=== PATIENT | female | born 1950 | race Caucasian/White ===

== ENCOUNTER 2018-06-07 06:15 | Day surgery (SDC) | payer MEDICARE, OTHER ==
[2018-06-07] MEDS ORDERED: Lactated Ringers 1,000 ML IV SCH (07:00)
[2018-06-07] MEDS ORDERED: Midazolam 1 MG/ML 2 ML SDV ONE (07:19)
[2018-06-07] MEDS ORDERED: fentaNYL 100 MCG/2 ML SDV ONE (07:19)
[2018-06-07] MEDS ORDERED: Propofol 200 MG/20 ML SDV ONE (07:19)
--- NOTE | 2018-06-07 11:14 | OR ---
DATE OF PROCEDURE: 06/07/2018 PREOPERATIVE DIAGNOSIS: History of adenomatous colon polyps. POSTOPERATIVE DIAGNOSES: 1. Unremarkable colonoscopy. 2. History of adenomatous colon polyps. PROCEDURE PERFORMED: Colonoscopy to the cecum. ANESTHESIA: IV anesthesia with monitored anesthesia care. INDICATION: This 67-year-old white female is referred for a colonoscopy because of a history of adenomatous colon polyps. She says her last colonoscopic exam was done 5 years ago. I counseled her for the procedure, including risks and alternatives, and she gave her informed consent to proceed. DESCRIPTION OF PROCEDURE: The patient was placed in the left lateral decubitus position. IV anesthesia was administered by the Anesthesia Service. Time-out was held. A rectal exam was performed, which was unremarkable. The flexible video Olympus colonoscope was introduced through her anus, up her rectum and out her colon, all the way to the cecum. Once the cecum was reached, the scope was slowly withdrawn examining the mucosa throughout. No mucosal abnormalities were noted. The scope was retroflexed in the rectum with the distal rectum appearing unremarkable. The scope was straightened and removed. She tolerated the procedure well. Samir Webster MD /[id number]
== END 2018-06-07 09:15 | disposition home or self-care (01) ==
LOC: JP.SDS 06:15
PROVIDERS: ATTEND Surgery
DX: Z12.11 Encounter for screening for malignant neoplasm of colon (principal); E21.3 Hyperparathyroidism, unspecified; K75.9 Inflammatory liver disease, unspecified; Z86.010 Personal history of colon polyps; Z88.1 Allergy status to other antibiotic agents
CPT/HCPCS: 45378; J2250; J2704; J3010; J7120

== ENCOUNTER 2019-09-20 19:18 | Inpatient (IN) | payer OTHER, MEDICARE ==
[2019-09-20] MEDS ORDERED: Sodium Chloride 0.9% 1,000 ML IV ONE (20:07)
--- NOTE | 2019-09-20 20:09 | EDM.PDOC ---
ED HPI GENERAL MEDICAL PROBLEM - General Chief Complaint: General Stated Complaint: BODY ACHES Time Seen by Provider: 09/20/19 19:50 Source of Information: Reports: Patient History Limitations: Reports: No Limitations - History of Present Illness INITIAL COMMENTS - FREE TEXT/NARRATIVE: 68-year-old female with a history of lupus, presents with 3 days of generalized myalgias, fever, headache, and decreased appetite. She has no respiratory symptoms or cold symptoms. She has also developed a rash on her chest for the last 3 days. She had a teleconference with her [employer] fscm developer today who did not feel it was a lupus flare but he did call her primary provider to ask her to draw some labs including a COVID test and testing for a lupus flare. She had an appointment tomorrow to get this done but tonight she was so weak, had so much generalized pain, that she called the ambulance and came in. Her temperature on arrival was 101.9 but the rest of her vitals were normal, she was not tachycardic or hypotensive. Her muscle pain and fatigue are generalized , she has no isolated joint swelling, redness or pain. Diffuse abdominal discomfort, no focal pain. Denies nausea vomiting or diarrhea. Onset: Gradual (Symptoms have developed over the last 3 days) Location: Reports: Generalized Quality: Reports: Ache Associated Symptoms: Reports: Fever/Chills, Headaches, Loss of Appetite, Malaise , Weakness, Other (Fine papular rash on her chest). Denies: Chest Pain, Cough, Diaphoresis, Nausea/Vomiting muscle pain Pain Score (Numeric/FACES): 8 - Related Data Allergies Allergy/AdvReac Type Severity Reaction Status Date / Time tobramycin Allergy Swelling Verified 09/20/19 19:23 Home Meds: Home Meds Hydroxychloroquine Sulfate [Plaquenil] 300 mg PO DAILY 06/03/18 [History] Levothyroxine 137 mcg PO DAILY 06/03/18 [History] Citalopram [Citalopram HBr] 20 mg PO ASDIRECTED PRN 09/20/19 [History] hydrOXYzine pamoate [Hydroxyzine Pamoate] 25 mg PO ASDIRECTED PRN 09/20/19 [ History] hydroCHLOROthiazide [Hydrochlorothiazide] 12.5 mg PO DAILY 09/20/19 [History] traZODone HCl [Trazodone HCl] 50 mg PO BEDTIME PRN 09/20/19 [History] Past Medical History HEENT History: Reports: Impaired Vision Cardiovascular History: Reports: Hypertension Gastrointestinal History: Reports: Colon Polyp Genitourinary History: Reports: Renal Calculus 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: Reports: Fibroids Psychiatric History: Reports: Anxiety, Depression Endocrine/Metabolic History: Reports: Hyperparathyroidism, Hyperthyroidism Immunologic History: Reports: Other (See Below) Other Immunologic History: autoimmune hepatitis type II; lupus - Infectious Disease History Infectious Disease History: Reports: Chicken Pox, Helicobacter Pylori, Measles, Mumps, Shingles - Past Surgical History HEENT Surgical History: Reports: Tonsillectomy, Other (See Below) Other HEENT Surgeries/Procedures: eyelid surgery GI Surgical History: Reports: Appendectomy, Cholecystectomy, Colonoscopy, EGD Female Surgical History: Reports: Hysterectomy, Salpingo-Oophorectomy Endocrine Surgical History: Reports: Parathyroidectomy Social & Family History - Family History Family Medical History: Noncontributory - Tobacco Use Smoking Status *Q: Never Smoker - Caffeine Use Caffeine Use: Reports: Coffee - Recreational Drug Use Recreational Drug Use: No ED ROS GENERAL - Review of Systems Review Of Systems: See Below Constitutional: Reports: Fever, Chills, Malaise, Decreased Appetite HEENT: Denies: Vision Change Respiratory: Denies: Shortness of Breath, Cough Cardiovascular: Denies: Chest Pain GI/Abdominal: Reports: Abdominal Pain, Decreased Appetite, Nausea. Denies: Constipation, Diarrhea, Vomiting Musculoskeletal: Reports: Muscle Pain Skin: Reports: Rash Neurological: Reports: Headache. Denies: Confusion, Syncope Psychiatric: Reports: Anxiety ED EXAM, GENERAL - Physical Exam Exam: See Below Exam Limited By: No Limitations General Appearance: Alert, No Apparent Distress (Patient looks uncomfortable generally, but in no distress) Eye Exam: Bilateral Eye: Normal Inspection (Good hydration, no jaundice) Head: Atraumatic Respiratory/Chest: No Respiratory Distress, Lungs Clear Cardiovascular: Regular Rate, Rhythm. No: Tachycardia GI/Abdominal: Normal Bowel Sounds, Soft, Tender (She does react with tenderness to palpation of the abdomen diffusely, no significant guarding) Extremities: Other (Generally any palpation to the muscles on the back, extremities or abdomen are sore). No: No Pedal Edema Neurological: Alert, Oriented, No Motor/Sensory Deficits Psychiatric: Anxious, Tearful Skin Exam: Rash (There is a papular erythematous rash on the anterior chest but nowhere else) Course - Vital Signs Last Recorded V/S: Last Vital Signs Temp 99.8 F 09/20/19 22:46 Pulse 59 L 09/20/19 22:46 Resp 18 09/20/19 22:46 BP 91/41 L 09/20/19 22:46 Pulse Ox 96 09/20/19 22:46 - Orders/Labs/Meds Orders: Active Orders 24 hr Category Date Time Status BABESIA MICROTI ANTIBODY PANEL Urgent Lab 09/20/19 20:24 Received [id number] SARS-COV-2 RNA Stat Lab 09/20/19 20:05 Ordered CULTURE BLOOD [BC] Urgent Lab 09/20/19 20:24 Received CULTURE BLOOD [BC] Urgent Lab 09/20/19 20:35 Received HUMAN GRANULOCYTIC TUSHAR-HGE Urgent Lab 09/20/19 20:24 Received LYME, TOTAL AB TEST/REFLEX Urgent Lab 09/20/19 20:24 Received Blood Culture x2 Reflex Set [OM.PC] Urgent Oth 09/20/19 20:03 Ordered Isolation [COMM] Routine Oth 09/20/19 20:08 Ordered Medication Orders Acetaminophen (Tylenol) 650 mg PO Q4H PRN PRN Reason: Pain (Mild 1-3)/fever Citalopram Hydrobromide (Celexa) 20 mg PO ASDIRECTED PRN PRN Reason: depression Docusate Sodium (Colace) 100 mg PO BID PRN PRN Reason: Constipation Hydrochlorothiazide (Hydrochlorothiazide) 12.5 mg PO DAILY [facility] Hydroxychloroquine Sulfate (Plaquenil) 300 mg PO DAILY [facility] Doxycycline Hyclate 100 mg/ (Sodium Chloride) 100 mls @ 100 mls/hr IV Q12H [facility] Sodium Chloride (Normal Saline) 1,000 mls @ 125 mls/hr IV ASDIRECTED [facility] Levothyroxine Sodium (Levothyroxine) 112 mcg PO ACBREAKFAST [facility] Levothyroxine Sodium (Levothyroxine) 25 mcg PO ACBREAKFAST [facility] Lorazepam (Ativan) 1 mg IV Q6H PRN PRN Reason: Nausea/Vomiting Morphine Sulfate (Morphine) 2 mg IVPUSH Q2H PRN PRN Reason: Pain (severe 7-10) Non-Formulary Medication (Hydroxyzine Pamoate [Hydroxyzine Pamoate]) 25 mg PO ASDIRECTED PRN PRN Reason: Anxiety Ondansetron HCl (Zofran Odt) 4 mg PO Q6H PRN PRN Reason: Nausea able to take PO Oxycodone HCl (Oxycodone) 5 mg PO Q4H PRN PRN Reason: Pain (moderate 4-6) Pantoprazole Sodium (Protonix Iv) 40 mg IV DAILY [facility] Trazodone HCl (Trazodone) 50 mg PO BEDTIME PRN PRN Reason: Insomnia Labs: Laboratory Tests 09/20/19 09/20/19 09/20/19 Range/Units 20:04 20:24 20:24 WBC 5.0 (4.5-11.0) K/uL RBC 4.92 (3.30-5.50) M/uL Hgb 14.4 (12.0-15.0) g/dL Hct 42.6 (36.0-48.0) % MCV 87 (80-98) fL MCH 29 (27-31) pg MCHC 34 (32-36) % Plt Count 122 L (150-400) K/uL Neut % (Auto) 62 (36-66) % Lymph % (Auto) 26 (24-44) % Collin % (Auto) 10 H (2-6) % Eos % (Auto) 0 L (2-4) % Baso % (Auto) 2 H (0-1) % Sodium 137 L (140-148) mmol/L Potassium 2.9 L* (3.6-5.2) mmol/L Chloride 101 (100-108) mmol/L Carbon Dioxide 25 (21-32) mmol/L Anion Gap 13.9 (5.0-14.0) mmol/L BUN 17 (7-18) mg/dL Creatinine 1.3 H (0.6-1.0) mg/dL Est Cr Clr Drug Dosing 31.85 mL/min Estimated GFR (MDRD) 40 L (>60) Glucose 155 H (74-106) mg/dL Lactic Acid 1.0 (0.4-2.0) mmol/L Calcium 8.0 L (8.5-10.1) mg/dL Total Bilirubin 0.7 (0.2-1.0) mg/dL AST 36 (15-37) U/L ALT 37 (12-78) U/L Alkaline Phosphatase 84 (46-116) U/L Creatine Kinase (26-192) U/L C-Reactive Protein (0.0-0.3) mg/dL Total Protein 7.0 (6.4-8.2) g/dL Albumin 3.6 (3.4-5.0) g/dL Globulin 3.4 (2.3-3.5) g/dL Albumin/Globulin Ratio 1.1 L (1.2-2.2) 09/20/19 Range/Units 20:24 WBC (4.5-11.0) K/uL RBC (3.30-5.50) M/uL Hgb (12.0-15.0) g/dL Hct (36.0-48.0) % MCV (80-98) fL MCH (27-31) pg MCHC (32-36) % Plt Count (150-400) K/uL Neut % (Auto) (36-66) % Lymph % (Auto) (24-44) % Collin % (Auto) (2-6) % Eos % (Auto) (2-4) % Baso % (Auto) (0-1) % Sodium (140-148) mmol/L Potassium (3.6-5.2) mmol/L Chloride (100-108) mmol/L Carbon Dioxide (21-32) mmol/L Anion Gap (5.0-14.0) mmol/L BUN (7-18) mg/dL Creatinine (0.6-1.0) mg/dL Est Cr Clr Drug Dosing mL/min Estimated GFR (MDRD) (>60) Glucose (74-106) mg/dL Lactic Acid (0.4-2.0) mmol/L Calcium (8.5-10.1) mg/dL Total Bilirubin (0.2-1.0) mg/dL AST (15-37) U/L ALT (12-78) U/L Alkaline Phosphatase (46-116) U/L Creatine Kinase 28 (26-192) U/L C-Reactive Protein 4.20 H (0.0-0.3) mg/dL Total Protein (6.4-8.2) g/dL Albumin (3.4-5.0) g/dL Globulin (2.3-3.5) g/dL Albumin/Globulin Ratio (1.2-2.2) Meds: Medications Generic Name Dose Route Start Last Admin Trade Name Freq PRN Reason Stop Dose Admin Acetaminophen 650 mg 09/20/19 22:46 Tylenol PO Q4H PRN Pain (Mild 1-3)/fever Citalopram Hydrobromide 20 mg 09/20/19 22:46 Celexa PO ASDIRECTED PRN depression Docusate Sodium 100 mg 09/20/19 22:46 Colace PO BID PRN Constipation Hydrochlorothiazide 12.5 mg 09/21/19 09:00 Hydrochlorothiazide PO DAILY [facility] Hydroxychloroquine Sulfate 300 mg 09/21/19 09:00 Plaquenil PO DAILY [facility] Doxycycline Hyclate 100 mg/ 100 mls @ 100 mls/hr 09/20/19 23:00 Sodium Chloride IV Q12H [facility] Sodium Chloride 1,000 mls @ 125 mls/hr 09/20/19 22:46 Normal Saline IV ASDIRECTED [facility] Levothyroxine Sodium 112 mcg 09/21/19 07:30 Levothyroxine PO ACBREAKFAST [facility] Levothyroxine Sodium 25 mcg 09/21/19 07:30 Levothyroxine PO ACBREAKFAST [facility] Lorazepam 1 mg 09/20/19 22:46 Ativan IV Q6H PRN Nausea/Vomiting Morphine Sulfate 2 mg 09/20/19 22:46 Morphine IVPUSH Q2H PRN Pain (severe 7-10) Non-Formulary Medication 25 mg 09/20/19 22:46 Hydroxyzine Pamoate [Hydroxyzine Pamoate] PO ASDIRECTED PRN Anxiety Ondansetron HCl 4 mg 09/20/19 22:46 Zofran Odt PO Q6H PRN Nausea able to take PO Oxycodone HCl 5 mg 09/20/19 22:46 Oxycodone PO Q4H PRN Pain (moderate 4-6) Pantoprazole Sodium 40 mg 09/21/19 09:00 Protonix Iv IV DAILY [facility] Trazodone HCl 50 mg 09/20/19 22:46 Trazodone PO BEDTIME PRN Insomnia Discontinued Medications Generic Name Dose Route Start Last Admin Trade Name Freq PRN Reason Stop Dose Admin Acetaminophen 1,000 mg 09/20/19 20:18 09/20/19 20:29 Tylenol Extra Strength PO 09/20/19 20:19 1,000 mg ONETIME ONE Administration Sodium Chloride 1,000 mls @ 500 mls/hr 09/20/19 20:07 09/20/19 20:37 Normal Saline IV 09/20/19 22:06 500 mls/hr .BOLUS ONE Administration Potassium Chloride 20 meq/ 100 mls @ 50 mls/hr 09/20/19 21:39 Premix IV 09/20/19 23:38 ONETIME ONE Potassium Chloride 20 meq/ 100 mls @ 50 mls/hr 09/20/19 21:40 Premix IV 09/20/19 23:39 ONETIME ONE Lidocaine HCl 5 ml 09/20/19 21:39 Xylocaine-Mpf 1% INJECT 09/20/19 21:40 ONETIME ONE - Re-Assessments/Exams Free Text/Narrative Re-Assessment/Exam: 09/20/19 20:52 IV was started, she was given 500 cc of normal saline an hour. Also given 1000 mg of oral Tylenol. Blood cultures, CBC, CMP, lactic acid, tick panel, CRP were drawn. She just had a UA checked at the clinic which was negative within the last few days this was not repeated as she has no urinary symptoms. 09/20/19 20:54 COVID and influenza tests were also obtained. 09/20/19 21:19 Potassium returned 2.9, white count was 5000, hemoglobin normal, platelets 122, 000. CRP was elevated at 4, but lactic acid was normal. Patient felt better after the Tylenol and some fluids. I think she needs admission for coverage with IV antibiotics until the blood cultures return, the COVID test returns, and consultation can be made with her [employer] fscm developer to start treatment for possible lupus flare. Patient is agreeable to admission. Departure - Departure Time of Disposition: 22:32 Disposition: Admitted As Inpatient 64 Clinical Impression: Acute febrile illness, Myalgia, Weakness, Rash, Lupus - Discharge Information Sepsis Event Note (ED) - Evaluation Sepsis Screening Result: No Definite Risk - Focused Exam Vital Signs: Vital Signs Temp Pulse Resp BP Pulse Ox 09/20/19 22:09 100.2 F 78 16 110/54 L 97 09/20/19 20:49 101.9 F H 09/20/19 19:28 101.4 F H 80 15 123/74 96 09/20/19 19:27 101.4 F H 80 15 123/74 96 - My Orders Last 24 Hours: My Active Orders 09/20/19 20:03 Blood Culture x2 Reflex Set [OM.PC] Urgent 09/20/19 20:05 [id number] SARS-COV-2 RNA Stat 09/20/19 20:08 Isolation [COMM] Routine 09/20/19 20:24 BABESIA MICROTI ANTIBODY PANEL Urgent CULTURE BLOOD [BC] Urgent HUMAN GRANULOCYTIC TUSHAR-HGE Urgent LYME, TOTAL AB TEST/REFLEX Urgent 09/20/19 20:35 CULTURE BLOOD [BC] Urgent - Assessment/Plan Last 24 Hours: My Active Orders 09/20/19 20:03 Blood Culture x2 Reflex Set [OM.PC] Urgent 09/20/19 20:05 [id number] SARS-COV-2 RNA Stat 09/20/19 20:08 Isolation [COMM] Routine 09/20/19 20:24 BABESIA MICROTI ANTIBODY PANEL Urgent CULTURE BLOOD [BC] Urgent HUMAN GRANULOCYTIC TUSHAR-HGE Urgent LYME, TOTAL AB TEST/REFLEX Urgent 09/20/19 20:35 CULTURE BLOOD [BC] Urgent
[2019-09-20] MEDS ORDERED: Acetaminophen 500 MG Tab PO ONE (20:18)
[2019-09-20] MEDS ORDERED: Potassium Chloride 20 MEQ in Premix Bag 1 BAG IV ONE ×2 (21:39→21:40)
--- NOTE | 2019-09-20 22:29 | PCM.HP.2 ---
H&P History of Present Illness - General Date of Service: 09/20/19 Admit Problem/Dx: Admission Diagnosis/Problem Admission Diagnosis/Problem Fever of unknown origin Source of Information: Patient, EMS Notes Reviewed, Provider, RN History Limitations: Reports: No Limitations - History of Present Illness Initial Comments - Free Text/Narative: chief complaint: fever and weakness. 68-year-old female with a history of lupus, presents with 3 days of generalized myalgias, fever, headache, and decreased appetite. She has no respiratory symptoms or cold symptoms. She has also developed a rash on her chest for the last 3 days. She had a teleconference with her co founder and director today who did not feel it was a lupus flare but he did call her primary provider to ask her to draw some labs including a COVID test and testing for a lupus flare. She had an appointment tomorrow to get this done but tonight she was so weak, had so much generalized pain, that she called the ambulance and came in. Her temperature on arrival was 101.9 but the rest of her vitals were normal, she was not tachycardic or hypotensive. Her muscle pain and fatigue are generalized , she has no isolated joint swelling, redness or pain. Diffuse abdominal discomfort, no focal pain. Denies nausea vomiting or diarrhea. Onset: Gradual (Symptoms have developed over the last 3 days) . Onset of Symptoms: Reports: Gradual Symptom Onset Date: 09/14/19 Duration of Symptoms: Reports: Chronic, Getting Worse Location: Reports: Generalized (muscle weakness and fever) Quality: Reports: Ache Severity: Moderate Improves with: Reports: None Worsens with: Reports: None Context: Reports: Other (Lupus) Associated Symptoms: Reports: Fever/Chills (fever of 104 at home.), Headaches, Loss of Appetite, Malaise, Nausea/Vomiting (nausea-without vomiting), Weakness muscle pain Pain Score (Numeric/FACES): 8 - Related Data Allergies/Adverse Reactions: Allergies Allergy/AdvReac Type Severity Reaction Status Date / Time tobramycin Allergy Swelling Verified 09/20/19 19:23 Home Medications: Home Meds Hydroxychloroquine Sulfate [Plaquenil] 300 mg PO DAILY 06/03/18 [History] Levothyroxine 137 mcg PO DAILY 06/03/18 [History] Citalopram [Citalopram HBr] 20 mg PO ASDIRECTED PRN 09/20/19 [History] hydrOXYzine pamoate [Hydroxyzine Pamoate] 25 mg PO ASDIRECTED PRN 09/20/19 [ History] hydroCHLOROthiazide [Hydrochlorothiazide] 12.5 mg PO DAILY 09/20/19 [History] traZODone HCl [Trazodone HCl] 50 mg PO BEDTIME PRN 09/20/19 [History] Past Medical History HEENT History: Reports: Impaired Vision Cardiovascular History: Reports: Hypertension Gastrointestinal History: Reports: Colon Polyp Genitourinary History: Reports: Renal Calculus DIRECTOR OF CARDIOLOGY History: Reports: Fibroids Psychiatric History: Reports: Anxiety, Depression Endocrine/Metabolic History: Reports: Hyperparathyroidism, Hyperthyroidism Immunologic History: Reports: Other (See Below) Other Immunologic History: autoimmune hepatitis type II; lupus - Infectious Disease History Infectious Disease History: Reports: Chicken Pox, Helicobacter Pylori, Measles, Mumps, Shingles - Past Surgical History HEENT Surgical History: Reports: Tonsillectomy, Other (See Below) Other HEENT Surgeries/Procedures: eyelid surgery GI Surgical History: Reports: Appendectomy, Cholecystectomy, Colonoscopy, EGD Female Surgical History: Reports: Hysterectomy, Salpingo-Oophorectomy Endocrine Surgical History: Reports: Parathyroidectomy Social & Family History - Family History Family Medical History: Noncontributory - Tobacco Use Smoking Status *Q: Never Smoker - Caffeine Use Caffeine Use: Reports: Coffee - Recreational Drug Use Recreational Drug Use: No - Living Situation & Occupation Living situation: Reports: Occupation: Retired (lives with in [place], [place]., moved from the [facility] in 2017. retired 38 years from [employer]. One adopted Daughter.) H&P Review of Systems - Review of Systems: Review Of Systems: See Below General: Reports: Fever, Weakness, Fatigue, Decreased Appetite HEENT: Reports: No Symptoms Pulmonary: Reports: No Symptoms Cardiovascular: Reports: No Symptoms Gastrointestinal: Reports: Nausea (without vomiting) Genitourinary: Reports: No Symptoms Musculoskeletal: Reports: Joint Pain, Muscle Pain, Muscle Stiffness Skin: Reports: Rash (chest) Psychiatric: Reports: No Symptoms Neurological: Reports: No Symptoms Hematologic/Lymphatic: Reports: No Symptoms Immunologic: Reports: No Symptoms Exam - Exam Exam: See Below - Vital Signs Vital Signs: Last Vital Signs Temp 37.9 C 06/16/20 22:09 Pulse 78 09/20/19 22:09 Resp 16 09/20/19 22:09 BP 110/54 L 09/20/19 22:09 Pulse Ox 97 09/20/19 22:09 Weight: 65.317 kg - Exam Quality Assessment: DVT Prophylaxis General: Alert, Oriented, Cooperative, Mild Distress (tearful) HEENT: PERRLA, Mucosa Moist & [place] Neck: Supple, Trachea Midline Lungs: Clear to Auscultation, Normal Respiratory Effort Cardiovascular: Regular Rate, Regular Rhythm, Normal S1, Normal S2 GI/Abdominal Exam: Normal Bowel Sounds, Soft, Non-Tender, No Organomegaly, No Distention (Female) Exam: Deferred Rectal (Female) Exam: Deferred Back Exam: Normal Inspection Extremities: Normal Inspection Skin: Warm, Dry, Intact, Rash (rash to chest) Neurological: Reflexes Equal Bilateral, Strength Equal Bilateral Neuro Extensive - Mental Status: Alert, Oriented x3, Normal Mood/Affect, Normal Cognition Psychiatric: Alert, Normal Affect, Normal Mood - Patient Data Lab Results Last 24 hrs: Laboratory Results - last 24 hr 09/20/19 09/20/19 09/20/19 Range/Units 20:04 20:24 20:24 WBC 5.0 (4.5-11.0) K/uL RBC 4.92 (3.30-5.50) M/uL Hgb 14.4 (12.0-15.0) g/dL Hct 42.6 (36.0-48.0) % MCV 87 (80-98) fL MCH 29 (27-31) pg MCHC 34 (32-36) % Plt Count 122 L (150-400) K/uL Neut % (Auto) 62 (36-66) % Lymph % (Auto) 26 (24-44) % [place] % (Auto) 10 H (2-6) % Eos % (Auto) 0 L (2-4) % Baso % (Auto) 2 H (0-1) % Sodium 137 L (140-148) mmol/L Potassium 2.9 L* (3.6-5.2) mmol/L Chloride 101 (100-108) mmol/L Carbon Dioxide 25 (21-32) mmol/L Anion Gap 13.9 (5.0-14.0) mmol/L BUN 17 (7-18) mg/dL Creatinine 1.3 H (0.6-1.0) mg/dL Est Cr Clr Drug Dosing 31.85 mL/min Estimated GFR (MDRD) 40 L (>60) Glucose 155 H (74-106) mg/dL Lactic Acid 1.0 (0.4-2.0) mmol/L Calcium 8.0 L (8.5-10.1) mg/dL Total Bilirubin 0.7 (0.2-1.0) mg/dL AST 36 (15-37) U/L ALT 37 (12-78) U/L Alkaline Phosphatase 84 (46-116) U/L Creatine Kinase (26-192) U/L C-Reactive Protein (0.0-0.3) mg/dL Total Protein 7.0 (6.4-8.2) g/dL Albumin 3.6 (3.4-5.0) g/dL Globulin 3.4 (2.3-3.5) g/dL Albumin/Globulin Ratio 1.1 L (1.2-2.2) /16/20 Range/Units 20:24 WBC (4.5-11.0) K/uL RBC (3.30-5.50) M/uL Hgb (12.0-15.0) g/dL Hct (36.0-48.0) % MCV (80-98) fL MCH (27-31) pg MCHC (32-36) % Plt Count (150-400) K/uL Neut % (Auto) (36-66) % Lymph % (Auto) (24-44) % [place] % (Auto) (2-6) % Eos % (Auto) (2-4) % Baso % (Auto) (0-1) % Sodium (140-148) mmol/L Potassium (3.6-5.2) mmol/L Chloride (100-108) mmol/L Carbon Dioxide (21-32) mmol/L Anion Gap (5.0-14.0) mmol/L BUN (7-18) mg/dL Creatinine (0.6-1.0) mg/dL Est Cr Clr Drug Dosing mL/min Estimated GFR (MDRD) (>60) Glucose (74-106) mg/dL Lactic Acid (0.4-2.0) mmol/L Calcium (8.5-10.1) mg/dL Total Bilirubin (0.2-1.0) mg/dL AST (15-37) U/L ALT (12-78) U/L Alkaline Phosphatase (46-116) U/L Creatine Kinase 28 (26-192) U/L C-Reactive Protein 4.20 H (0.0-0.3) mg/dL Total Protein (6.4-8.2) g/dL Albumin (3.4-5.0) g/dL Globulin (2.3-3.5) g/dL Albumin/Globulin Ratio (1.2-2.2) Result Diagrams: 09/20/19 20:24 09/20/19 20:24 [place] Results Last 24 hrs: Microbiology 09/20/19 20:40 Influenza Type A Antigen Screen - Final Nasal Aspirate, Unspecified NEGATIVE INFLUENZA A VIRUS AG REFERENCE RANGE: NEGATIVE Influenza Type B Antigen Screen - Final NEGATIVE INFLUENZA B VIRUS AG REFERENCE RANGE: NEGATIVE Sepsis Event Note - Evaluation Sepsis Screening Result: No Definite Risk - Focused Exam Vital Signs: Vital Signs Temp Pulse Resp BP Pulse Ox 09/20/19 22:09 37.9 C 78 16 110/54 L 97 09/20/19 20:49 38.8 C H 09/20/19 19:28 38.6 C H 80 15 123/74 96 09/20/19 19:27 38.6 C H 80 15 123/74 96 Date Exam was Performed: 09/20/19 Time Exam was Performed: 23:00 - Problem List (1) Acute febrile illness SNOMED Code(s): 644603486 ICD Code: R50.9 - FEVER, UNSPECIFIED Status: Acute Priority: High Current Visit: Yes (2) Hypokalemia SNOMED Code(s): 68336676 ICD Code: E87.6 - HYPOKALEMIA Status: Acute Priority: High Current Visit: Yes (3) Lupus SNOMED Code(s): 803789956 ICD Code: M32.9 - SYSTEMIC LUPUS ERYTHEMATOSUS, UNSPECIFIED Status: Acute Priority: High Current Visit: Yes Problem List Initiated/Reviewed/Updated: Yes Orders Last 24hrs: Active Orders 24 hr Category Date Time Status Patient Status Manage Transfer [TRANSFER] Routine ADT 09/20/19 22:14 Ordered BABESIA MICROTI ANTIBODY PANEL Urgent Lab 09/20/19 20:24 Received [id number] SARS-COV-2 RNA Stat Lab 09/20/19 20:05 Ordered CULTURE BLOOD [BC] Urgent Lab 09/20/19 20:24 Received CULTURE BLOOD [BC] Urgent Lab 09/20/19 20:35 Received HUMAN GRANULOCYTIC TUSHAR-HGE Urgent Lab 09/20/19 20:24 Received LYME, TOTAL AB TEST/REFLEX Urgent Lab 09/20/19 20:24 Received Potassium Chloride [KCL 20 MEQ in Water 100 ML] 20 meq Med 09/20/19 21:39 Active Premix Bag 1 bag IV ONETIME Potassium Chloride [KCL 20 MEQ in Water 100 ML] 20 meq Med 09/20/19 21:40 Active Premix Bag 1 bag IV ONETIME Blood Culture x2 Reflex Set [OM.PC] Urgent Oth 09/20/19 20:03 Ordered Isolation [COMM] Routine Oth 09/20/19 20:08 Ordered Resuscitation Status Routine Resus Stat 09/20/19 22:15 Ordered Medication Orders Potassium Chloride 20 meq/ (Premix) 100 mls @ 50 mls/hr IV ONETIME ONE Stop: 09/20/19 23:38 Potassium Chloride 20 meq/ (Premix) 100 mls @ 50 mls/hr IV ONETIME ONE Stop: 09/20/19 23:39 Assessment/Plan Comment:: ASSESSMENT / PLAN: Febrile illness FEBRILE ILLNESS 68-year-old female with a history of lupus, presents with 3 days of generalized myalgias, fever, headache, and decreased appetite. She has no respiratory symptoms or cold symptoms. She has also developed a rash on her chest for the last 3 days. She had a teleconference with her co founder and director today who did not feel it was a lupus flare but he did call her primary provider to ask her to draw some labs including a COVID test and testing for a lupus flare. She had an appointment tomorrow to get this done but tonight she was so weak, had so much generalized pain, that she called the ambulance and came in. Her temperature on arrival was 101.9 but the rest of her vitals were normal, she was not tachycardic or hypotensive. Her muscle pain and fatigue are generalized , she has no isolated joint swelling, redness or pain. Diffuse abdominal discomfort, no focal pain. Denies nausea vomiting or diarrhea. Onset: Gradual (Symptoms have developed over the last 3 days) . - ER workup is suspicious for Tick Borne Illness vs Lupus Flare up. Past Surgeries- T&A, Stents for kidney stones, gallbladder, appendix, complete hysterectomy, Parathyroid and Thyroid. IV was started, she was given 500 cc of normal saline an hour. Also given 1000 mg of oral Tylenol. Blood cultures, CBC, CMP, lactic acid, tick panel, CRP were drawn. She just had a UA checked at the clinic which was negative within the last few days this was not repeated as she has no urinary symptoms. LABS-COVID and influenza tests were also obtained. Potassium returned 2.9, white count was 5000, hemoglobin normal, platelets 122, 000. CRP was elevated at 4, but lactic acid was normal. Patient felt better after the Tylenol and some fluids. I think she needs admission for coverage with IV antibiotics until the blood cultures return, the COVID test returns, and consultation can be made with her co founder and director to start treatment for possible lupus flare. Patient is agreeable to admission. FEBRILE ILLNESS-Admit to [address] [place] [address] for further monitoring -IV Fluids for rehydration NS 125 mL per hour. -IV Antibiotic- Doxy 100mg IV every 12 hours -Tylenol, Motrin, Oxycodone for pain control. Morphine sulphate IV for acute pain -Advise to notify nurses of any fever or worsen pain -blood cultures x2 pending -urine with micro pending -And a.m. labs: CBC, BMP Hypokalemia -IV Potassium chloride 40 meq. one time -am BMP Lupus - Specialist Dr. Krysta Cardona, he is a Lead Recreation Assistant at [facility], [place], [place]. -order medication for nausea -order medication for pain control Maintenance issues -Orders home meds: chronic medication -Nutrition: regular diet -Avendano catheter not indicated -DVT- SCD -PPI- IV Protonix 40 mg daily -consult Spiritual CODE STATUS: FULL Admission status: Admit to [address] [place] [address] Admission justification. This patient will be admitted for inpatient services and is medically appropriate meeting medical necessity for inpatient admission as outlined in my documentation. I reasonably expect the patient will require inpatient services that span. Time over 2 midnights. I reasonably expect this patient to be discharged or transferred within 96 hours after admission to the critical access hospital. Disposition: home with Primary care provider: Dr. Mini Elizondo, [place], [place]. Hospitalist: Dr. Rowley - Mortality Measure Prognosis:: Good
[2019-09-20] MEDS ORDERED: LORazepam 2 MG/ML SDV IV PRN (22:46)
[2019-09-20] MEDS ORDERED: oxyCODONE 5 MG Tab PO PRN (22:46)
[2019-09-20] MEDS ORDERED: Morphine 2 MG/ML Syringe IVPUSH PRN (22:46)
[2019-09-20] MEDS ORDERED: Citalopram 20 MG Tab PO PRN (22:46)
[2019-09-20] MEDS ORDERED: Docusate Sodium 100 MG Cap PO PRN (22:46)
[2019-09-20] MEDS ORDERED: Ondansetron 4 MG Tab.DIS PO PRN (22:46)
[2019-09-21] MEDS: Doxycycline 100 MG in Sodium Chloride 0.9% 100 ML IV SCH ×3 (00:02→23:04)
[2019-09-21] MEDS: traZODone 50 MG Tab PO PRN ×2 (00:12→23:09)
[2019-09-21] MEDS: Acetaminophen 325 MG Tab PO PRN ×3 (01:30→23:09)
[2019-09-21] MEDS ORDERED: hydrOXYzine HCl 25 MG Tab PO PRN (08:04)
[2019-09-21] MEDS ORDERED: Pantoprazole 40 MG Vial IV SCH (09:00)
[2019-09-21] MEDS ORDERED: Hydrochlorothiazide 12.5 MG Cap PO SCH (09:00)
[2019-09-21] MEDS: Hydroxychloroquine 200 MG Tab PO SCH (10:11)
[2019-09-21] MEDS: Citalopram 20 MG Tab PO SCH (10:12)
[2019-09-21] MEDS: Levothyroxine 112 MCG Tab PO SCH (10:12)
[2019-09-21] MEDS: Levothyroxine 25 MCG Tab PO SCH (10:13)
[2019-09-21] MEDS: Pantoprazole 40 MG Tab.CR PO SCH (12:15)
--- NOTE | 2019-09-21 12:19 | PCM.PN ---
- General Info Date of Service: 09/21/19 Subjective Update: No acute events overnight. No fever since admission. Headache has resolved. Muscle aches are better but still persistent. No significant nausea. She still feels weak but feels a little stronger than last night. Repeat laboratory studies are essentially stable. COVID19 testing is still pending. Blood pressure is on the low side of normal but otherwise stable. Functional Status: Reports: Pain Controlled, Tolerating Diet - Review of Systems General: Reports: Fever, Weakness Musculoskeletal: Reports: Other (diffuse myalgias. No arthralgias. ) - Patient Data Vitals - Most Recent: Last Vital Signs Temp 35.9 C L 09/21/19 11:26 Pulse 57 L 09/21/19 11:26 Resp 16 09/21/19 11:26 BP 107/50 L 09/21/19 11:26 Pulse Ox 98 09/21/19 11:26 Weight - Most Recent: 65.317 kg I&O - Last 24 Hours: Intake & Output 09/20/19 09/21/19 09/21/19 22:59 06:59 14:59 Intake Total 200 360 Output Total 200 500 Balance 0 -140 Lab Results Last 24 Hours: Laboratory Results - last 24 hr 09/20/19 09/20/19 09/20/19 Range/Units 20:04 20:24 20:24 WBC 5.0 (4.5-11.0) K/uL RBC 4.92 (3.30-5.50) M/uL Hgb 14.4 (12.0-15.0) g/dL Hct 42.6 (36.0-48.0) % MCV 87 (80-98) fL MCH 29 (27-31) pg MCHC 34 (32-36) % Plt Count 122 L (150-400) K/uL Neut % (Auto) 62 (36-66) % Lymph % (Auto) 26 (24-44) % [place] % (Auto) 10 H (2-6) % Eos % (Auto) 0 L (2-4) % Baso % (Auto) 2 H (0-1) % Sodium 137 L (140-148) mmol/L Potassium 2.9 L* (3.6-5.2) mmol/L Chloride 101 (100-108) mmol/L Carbon Dioxide 25 (21-32) mmol/L Anion Gap 13.9 (5.0-14.0) mmol/L BUN 17 (7-18) mg/dL Creatinine 1.3 H (0.6-1.0) mg/dL Est Cr Clr Drug Dosing 31.85 mL/min Estimated GFR (MDRD) 40 L (>60) Glucose 155 H (74-106) mg/dL Lactic Acid 1.0 (0.4-2.0) mmol/L Calcium 8.0 L (8.5-10.1) mg/dL Total Bilirubin 0.7 (0.2-1.0) mg/dL AST 36 (15-37) U/L ALT 37 (12-78) U/L Alkaline Phosphatase 84 (46-116) U/L Creatine Kinase (26-192) U/L C-Reactive Protein (0.0-0.3) mg/dL Total Protein 7.0 (6.4-8.2) g/dL Albumin 3.6 (3.4-5.0) g/dL Globulin 3.4 (2.3-3.5) g/dL Albumin/Globulin Ratio 1.1 L (1.2-2.2) Urine Color (YELLOW) Urine Appearance (CLEAR) Urine pH (5.0-8.0) Ur Specific [place] (1.008-1.030) Urine Protein (NEGATIVE) mg/dL Urine Glucose (UA) (NEGATIVE) mg/dL Urine Ketones (NEGATIVE) mg/dL Urine Occult Blood (NEGATIVE) Urine Nitrite (NEGATIVE) Urine Bilirubin (NEGATIVE) Urine Urobilinogen (0.2-1.0) EU/dL Ur Leukocyte Esterase (NEGATIVE) Urine RBC (0-5) Urine WBC (0-5) Ur Epithelial Cells Amorphous Sediment Urine Bacteria Urine Mucus 09/20/19 09/20/19 09/21/19 Range/Units 20:24 23:20 05:11 WBC 4.4 L (4.5-11.0) K/uL RBC 4.18 (3.30-5.50) M/uL Hgb 12.5 (12.0-15.0) g/dL Hct 37.1 (36.0-48.0) % MCV 89 (80-98) fL MCH 30 (27-31) pg MCHC 34 (32-36) % Plt Count 96 L (150-400) K/uL Neut % (Auto) 43 (36-66) % Lymph % (Auto) 40 (24-44) % [place] % (Auto) 15 H (2-6) % Eos % (Auto) 1 L (2-4) % Baso % (Auto) 2 H (0-1) % Sodium (140-148) mmol/L Potassium (3.6-5.2) mmol/L Chloride (100-108) mmol/L Carbon Dioxide (21-32) mmol/L Anion Gap (5.0-14.0) mmol/L BUN (7-18) mg/dL Creatinine (0.6-1.0) mg/dL Est Cr Clr Drug Dosing mL/min Estimated GFR (MDRD) (>60) Glucose (74-106) mg/dL Lactic Acid (0.4-2.0) mmol/L Calcium (8.5-10.1) mg/dL Total Bilirubin (0.2-1.0) mg/dL AST (15-37) U/L ALT (12-78) U/L Alkaline Phosphatase (46-116) U/L Creatine Kinase 28 (26-192) U/L C-Reactive Protein 4.20 H (0.0-0.3) mg/dL Total Protein (6.4-8.2) g/dL Albumin (3.4-5.0) g/dL Globulin (2.3-3.5) g/dL Albumin/Globulin Ratio (1.2-2.2) Urine Color Yellow (YELLOW) Urine Appearance Clear (CLEAR) Urine pH 6.5 (5.0-8.0) Ur Specific [place] 1.025 (1.008-1.030) Urine Protein Negative (NEGATIVE) mg/dL Urine Glucose (UA) Negative (NEGATIVE) mg/dL Urine Ketones Negative (NEGATIVE) mg/dL Urine Occult Blood Negative (NEGATIVE) Urine Nitrite Negative (NEGATIVE) Urine Bilirubin Small H (NEGATIVE) Urine Urobilinogen 4.0 H (0.2-1.0) EU/dL Ur Leukocyte Esterase Negative (NEGATIVE) Urine RBC 0-5 (0-5) Urine WBC 0-5 (0-5) Ur Epithelial Cells Few Amorphous Sediment Few Urine Bacteria Few Urine Mucus Not seen 09/21/19 Range/Units 05:11 WBC (4.5-11.0) K/uL RBC (3.30-5.50) M/uL Hgb (12.0-15.0) g/dL Hct (36.0-48.0) % MCV (80-98) fL MCH (27-31) pg MCHC (32-36) % Plt Count (150-400) K/uL Neut % (Auto) (36-66) % Lymph % (Auto) (24-44) % [place] % (Auto) (2-6) % Eos % (Auto) (2-4) % Baso % (Auto) (0-1) % Sodium 141 (140-148) mmol/L Potassium 3.9 (3.6-5.2) mmol/L Chloride 107 (100-108) mmol/L Carbon Dioxide 27 (21-32) mmol/L Anion Gap 6.7 (5.0-14.0) mmol/L BUN 14 (7-18) mg/dL Creatinine 1.2 H (0.6-1.0) mg/dL Est Cr Clr Drug Dosing 34.01 mL/min Estimated GFR (MDRD) 44 L (>60) Glucose 82 (74-106) mg/dL Lactic Acid (0.4-2.0) mmol/L Calcium 7.0 L (8.5-10.1) mg/dL Total Bilirubin (0.2-1.0) mg/dL AST (15-37) U/L ALT (12-78) U/L Alkaline Phosphatase (46-116) U/L Creatine Kinase (26-192) U/L C-Reactive Protein (0.0-0.3) mg/dL Total Protein (6.4-8.2) g/dL Albumin (3.4-5.0) g/dL Globulin (2.3-3.5) g/dL Albumin/Globulin Ratio (1.2-2.2) Urine Color (YELLOW) Urine Appearance (CLEAR) Urine pH (5.0-8.0) Ur Specific [place] (1.008-1.030) Urine Protein (NEGATIVE) mg/dL Urine Glucose (UA) (NEGATIVE) mg/dL Urine Ketones (NEGATIVE) mg/dL Urine Occult Blood (NEGATIVE) Urine Nitrite (NEGATIVE) Urine Bilirubin (NEGATIVE) Urine Urobilinogen (0.2-1.0) EU/dL Ur Leukocyte Esterase (NEGATIVE) Urine RBC (0-5) Urine WBC (0-5) Ur Epithelial Cells Amorphous Sediment Urine Bacteria Urine Mucus [place] Results Last 24 Hours: Microbiology 09/20/19 20:40 Influenza Type A Antigen Screen - Final Nasal Aspirate, Unspecified NEGATIVE INFLUENZA A VIRUS AG REFERENCE RANGE: NEGATIVE Influenza Type B Antigen Screen - Final NEGATIVE INFLUENZA B VIRUS AG REFERENCE RANGE: NEGATIVE Med Orders - Current: Current Medications Acetaminophen (Tylenol) 650 mg PO Q4H PRN PRN Reason: Pain (Mild 1-3)/fever Last Admin: 09/21/19 10:21 Dose: 650 mg Documented by: Citalopram Hydrobromide (Celexa) 20 mg PO DAILY [facility] Last Admin: 09/21/19 10:12 Dose: 20 mg Documented by: Docusate Sodium (Colace) 100 mg PO BID PRN PRN Reason: Constipation Hydrochlorothiazide (Hydrochlorothiazide) 12.5 mg PO DAILY [facility] Last Admin: 09/21/19 10:12 Dose: 12.5 mg Documented by: Hydroxychloroquine Sulfate (Plaquenil) 300 mg PO DAILY [facility] Last Admin: 09/21/19 10:11 Dose: 300 mg Documented by: Hydroxyzine HCl (Atarax) 25 mg PO TID PRN PRN Reason: ANXIETY Doxycycline Hyclate 100 mg/ (Sodium Chloride) 100 mls @ 100 mls/hr IV Q12H [facility] Last Admin: 09/21/19 12:13 Dose: 100 mls/hr Documented by: Sodium Chloride (Normal Saline) 1,000 mls @ 125 mls/hr IV ASDIRECTED [facility] Levothyroxine Sodium (Levothyroxine) 112 mcg PO ACBREAKFAST [facility] Last Admin: 09/21/19 10:12 Dose: 112 mcg Documented by: Levothyroxine Sodium (Levothyroxine) 25 mcg PO ACBREAKFAST [facility] Last Admin: 09/21/19 10:13 Dose: 25 mcg Documented by: Lorazepam (Ativan) 1 mg IV Q6H PRN PRN Reason: Nausea/Vomiting Morphine Sulfate (Morphine) 2 mg IVPUSH Q2H PRN PRN Reason: Pain (severe 7-10) Ondansetron HCl (Zofran Odt) 4 mg PO Q6H PRN PRN Reason: Nausea able to take PO Oxycodone HCl (Oxycodone) 5 mg PO Q4H PRN PRN Reason: Pain (moderate 4-6) Pantoprazole Sodium (Protonix) 40 mg PO ACBREAKFAST [facility] Last Admin: 09/21/19 12:15 Dose: 40 mg Documented by: Trazodone HCl (Trazodone) 50 mg PO BEDTIME PRN PRN Reason: Insomnia Last Admin: 09/21/19 00:12 Dose: 50 mg Documented by: Discontinued Medications Acetaminophen (Tylenol Extra Strength) 1,000 mg PO ONETIME ONE Stop: 09/20/19 20:19 Last Admin: 09/20/19 20:29 Dose: 1,000 mg Documented by: Citalopram Hydrobromide (Celexa) 20 mg PO ASDIRECTED PRN PRN Reason: depression Sodium Chloride (Normal Saline) 1,000 mls @ 500 mls/hr IV .BOLUS ONE Stop: 09/20/19 22:06 Last Admin: 09/20/19 20:37 Dose: 500 mls/hr Documented by: Potassium Chloride 20 meq/ (Premix) 100 mls @ 50 mls/hr IV ONETIME ONE Stop: 09/20/19 23:38 Last Admin: 09/21/19 01:26 Dose: 50 mls/hr Documented by: Potassium Chloride 20 meq/ (Premix) 100 mls @ 50 mls/hr IV ONETIME ONE Stop: 09/20/19 23:39 Last Admin: 09/21/19 04:35 Dose: 50 mls/hr Documented by: Lidocaine HCl (Xylocaine-Mpf 1%) 5 ml INJECT ONETIME ONE Stop: 09/20/19 21:40 Last Admin: 09/21/19 01:26 Dose: 5 ml Documented by: - Exam Quality Assessment: No: Supplemental Oxygen General: Alert, Oriented, Cooperative, No Acute Distress Lungs: Normal Respiratory Effort Cardiovascular: Regular Rate, Regular Rhythm GI/Abdominal Exam: Soft, No Distention Extremities: No Pedal Edema Psy/Mental Status: Alert, Normal Affect Sepsis Event Note - Evaluation Sepsis Screening Result: No Definite Risk - Focused Exam Vital Signs: Vital Signs Temp Pulse Resp BP Pulse Ox 09/21/19 11:26 35.9 C L 57 L 16 107/50 L 98 09/21/19 08:00 36.2 C 56 L 16 114/62 94 L Date Exam was Performed: 09/21/19 Time Exam was Performed: 14:55 - Problem List Review Problem List Initiated/Reviewed/Updated: Yes - My Orders Last 24 Hours: My Active Orders 09/21/19 09:00 Citalopram [Celexa] 20 mg PO DAILY 09/22/19 05:00 BASIC METABOLIC PANEL,BMP [CHEM] Timed CBC W/O DIFF,HEMOGRAM [HEME] Timed (1) - Plan Plan:: ASSESSMENT / PLAN: Anaplasmosis, 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 Laboratory studies fit perfectly along with symptoms. Serology is pending. Feeling better with fluids and some antibiotics. I highly doubt this is COVID19. -Continue fluids -Continue doxycycline -Symptom management -Follow-up cultures -Repeat labs in the morning -Follow-up serology -Follow-up COVID19 testing, discontinue precautions if negative Hypokalemia-improved with supplementation. -Labs in the morning Chronic systemic Lupus - Specialist Dr. Krysta Cardona - [employer] Operator at [facility], [place], [place]. -Continue home medications Maintenance issues -Nutrition: regular diet -Avendano catheter not indicated -DVT- SCD -GI-PPI Disposition-I would anticipate discharge home after the hospital stay Primary care provider: Dr. Mini Elizondo, [place], [place]. Frederic Rowley MD
[2019-09-21] MEDS: Sodium Chloride 0.9% 1,000 ML IV SCH (19:10)
[2019-09-22] MEDS: Sodium Chloride 0.9% 1,000 ML IV SCH (05:16)
[2019-09-22] MEDS: Levothyroxine 25 MCG Tab PO SCH (08:05)
[2019-09-22] MEDS: Levothyroxine 112 MCG Tab PO SCH (08:05)
[2019-09-22] MEDS: Citalopram 20 MG Tab PO SCH (08:06)
[2019-09-22] MEDS: Pantoprazole 40 MG Tab.CR PO SCH (08:06)
[2019-09-22] MEDS: Hydroxychloroquine 200 MG Tab PO SCH (08:06)
[2019-09-22] MEDS ORDERED: Potassium Chloride 20 MEQ Tab.ER PO ONE (10:00)
[2019-09-22] MEDS: Doxycycline 100 MG in Sodium Chloride 0.9% 100 ML IV SCH (10:02)
--- NOTE | 2019-09-22 12:25 | PCM.DCSUM1 ---
Discharge Summary - Hospital Course Brief History: 69-year-old female with history of systemic lupus erythematosus who presented with fever, headache, myalgias and fatigue. 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 Diagnosis: Stroke: No - Discharge Data Discharge Date: 09/22/19 Discharge Disposition: Home, Self-Care 01 Condition: Good - Referral to Home Health Primary Care Physician: PCP None - Discharge Diagnosis/Problem(s) (1) Anaplasmosis SNOMED Code(s): 574625078 ICD Code: A77.49 - OTHER EHRLICHIOSIS Status: Acute Current Visit: Yes (2) Systemic lupus erythematosus SNOMED Code(s): 55175630 ICD Code: M32.9 - SYSTEMIC LUPUS ERYTHEMATOSUS, UNSPECIFIED Status: Chronic Current Visit: No Qualifiers: Systemic lupus erythematosus type: unspecified Systemic lupus erythematosus organ involvement: unspecified Qualified Code(s): M32.9 - Systemic lupus erythematosus, unspecified - Patient Summary/Data Consults: Consultations 09/20/19 22:46 Consult to Spiritual Care [CONS] Routine Hospital Course: 69-year-old female with history of lupus who presented with fever, myalgias, weakness and decreased appetite. Work-up in the emergency room was most suspicious for acute tickborne disease including anaplasmosis but could not rule out COVID19 infection. Her white blood cell count and platelets were both low. Titers for tickborne disease were obtained. She was febrile in the emergency room. COVID19 testing was obtained. She was started on doxycycline and admitted for management of presumed tickborne disease and COVID19 rule out. Overnight following admission there were no acute issues and symptomatically she was improved but still quite weak. She tolerated her antibiotics. COVID19 testing did come back negative. Laboratory studies have remained stable but not dramatically improved and she has persistent leukopenia and thrombocytopenia. Symptomatically she is doing quite well. She has had essentially resolution of all of her presenting symptoms. Her appetite and strength have improved. Her headache has resolved. She feels well enough to go home at this point. I am confident enough that this is anaplasmosis that I am going to send her home with a prescription for doxycycline even though the serology is still pending. We did review the potential side effects of the antibiotic. She will be following up next week. - Patient Instructions Activity: As Tolerated Showering/Bathing: May Shower Notify Provider of: Fever, Increased Pain Other/Special Instructions: 1. You were in the hospital for management of fever, headaches, myalgias and weakness that I suspect were caused by anaplasmosis. This tickborne disease commonly causes your presenting symptoms as well as the laboratory studies that were obtained during the course of your emergency room and hospital stay. We did send off serologies to confirm this infection but they are not complete at the time of your hospital discharge. I do recommend that you complete a course of treatment for anaplasmosis. This will consist of doxycycline which you should take 100 mg twice daily with food. The most common side effect is that it causes stomach upset so taking it with food is a good idea. The medication can also make your skin more sensitive to the sun so it is important to cover your skin so use plenty of sunscreen. Your first dose outside of the hospital will be due tonight. 2. Continue your other medications as previously prescribed. 3. Follow-up with your primary care next week. - Discharge Plan *PRESCRIPTION DRUG MONITORING PROGRAM REVIEWED*: Not Applicable *COPY OF PRESCRIPTION DRUG MONITORING REPORT IN PATIENT [place]: Not Applicable Prescriptions/Med Rec: Doxycycline Hyclate 100 mg PO BID #38 tablet Home Medications: Home Meds Hydroxychloroquine Sulfate [Plaquenil] 300 mg PO DAILY 06/03/18 [History] Levothyroxine 137 mcg PO DAILY 06/03/18 [History] Citalopram [Citalopram HBr] 20 mg PO ASDIRECTED PRN 09/20/19 [History] hydrOXYzine pamoate [Hydroxyzine Pamoate] 25 mg PO ASDIRECTED PRN 09/20/19 [History] hydroCHLOROthiazide [Hydrochlorothiazide] 12.5 mg PO DAILY 09/20/19 [History] traZODone HCl [Trazodone HCl] 50 mg PO BEDTIME PRN 09/20/19 [History] Doxycycline Hyclate 100 mg PO BID #38 tablet 09/22/19 [Rx] Oxygen Therapy Mode: Room Air Patient Handouts: Doxycycline tablets or capsules, Ehrlichiosis and Anaplasmosis Referrals: Mini Elizondo MD [Ordering Only Provider] - 09/29/19 1:30 pm (1 week - f/u hospital stay for anaplasmosis ) - Discharge Summary/Plan Comment DC Time >30 min.: No - Patient Data Vitals - Most Recent: Last Vital Signs Temp 36.3 C 09/22/19 07:00 Pulse 55 L 09/22/19 07:00 Resp 16 09/22/19 07:00 BP 95/43 L 09/22/19 07:00 Pulse Ox 98 09/22/19 07:00 Weight - Most Recent: 65.317 kg I&O - Last 24 hours: Intake & Output 09/21/19 09/22/19 09/22/19 22:59 06:59 14:59 Intake Total 2184 580 Output Total 1000 900 800 Balance 1184 -900 -220 Lab Results - Last 24 hrs: Laboratory Results - last 24 hr 09/20/19 09/22/19 09/22/19 Range/Units 20:05 05:28 05:28 WBC 4.2 L (4.5-11.0) K/uL RBC 4.19 (3.30-5.50) M/uL Hgb 12.2 (12.0-15.0) g/dL Hct 37.5 (36.0-48.0) % MCV 90 (80-98) fL MCH 29 (27-31) pg MCHC 33 (32-36) % Plt Count 125 L (150-400) K/uL Sodium 143 (140-148) mmol/L Potassium 3.3 L (3.6-5.2) mmol/L Chloride 109 H (100-108) mmol/L Carbon Dioxide 26 (21-32) mmol/L Anion Gap 11.3 (5.0-14.0) mmol/L BUN 10 (7-18) mg/dL Creatinine 0.8 (0.6-1.0) mg/dL Est Cr Clr Drug Dosing 50.57 mL/min Estimated GFR (MDRD) > 60 (>60) Glucose 82 (74-106) mg/dL Calcium 7.1 L (8.5-10.1) mg/dL COVID-19 PCR Negative (NEGATIVE) [facility] Results - Last 24 hrs: Microbiology 09/20/19 20:35 Aerobic Blood Culture - Preliminary Blood - Venous - Iv Start NO GROWTH AFTER 1 DAY Anaerobic Blood Culture - Preliminary NO GROWTH AFTER 1 DAY 09/20/19 20:24 Aerobic Blood Culture - Preliminary Blood - Arm, Left NO GROWTH AFTER 1 DAY Anaerobic Blood Culture - Preliminary NO GROWTH AFTER 1 DAY Med Orders - Current: Current Medications Acetaminophen (Tylenol) 650 mg PO Q4H PRN PRN Reason: Pain (Mild 1-3)/fever Last Admin: 09/21/19 23:09 Dose: 650 mg Documented by: Citalopram Hydrobromide (Celexa) 20 mg PO DAILY [facility] Last Admin: 09/22/19 08:06 Dose: Not Given Documented by: Docusate Sodium (Colace) 100 mg PO BID PRN PRN Reason: Constipation Hydrochlorothiazide (Hydrochlorothiazide) 12.5 mg PO DAILY [facility] Last Admin: 09/21/19 10:12 Dose: 12.5 mg Documented by: Hydroxychloroquine Sulfate (Plaquenil) 300 mg PO DAILY [facility] Last Admin: 09/22/19 08:06 Dose: 300 mg Documented by: Hydroxyzine HCl (Atarax) 25 mg PO TID PRN PRN Reason: ANXIETY Doxycycline Hyclate 100 mg/ (Sodium Chloride) 100 mls @ 100 mls/hr IV Q12H [facility] Last Admin: 09/22/19 10:02 Dose: 100 mls/hr Documented by: Sodium Chloride (Normal Saline) 1,000 mls @ 125 mls/hr IV ASDIRECTED [facility] Last Admin: 09/22/19 05:16 Dose: 125 mls/hr Documented by: Levothyroxine Sodium (Levothyroxine) 112 mcg PO ACBREAKFAST [facility] Last Admin: 09/22/19 08:05 Dose: 112 mcg Documented by: Levothyroxine Sodium (Levothyroxine) 25 mcg PO ACBREAKFAST [facility] Last Admin: 09/22/19 08:05 Dose: 25 mcg Documented by: Lorazepam (Ativan) 1 mg IV Q6H PRN PRN Reason: Nausea/Vomiting Morphine Sulfate (Morphine) 2 mg IVPUSH Q2H PRN PRN Reason: Pain (severe 7-10) Ondansetron HCl (Zofran Odt) 4 mg PO Q6H PRN PRN Reason: Nausea able to take PO Oxycodone HCl (Oxycodone) 5 mg PO Q4H PRN PRN Reason: Pain (moderate 4-6) Last Admin: 09/21/19 12:27 Dose: 5 mg Documented by: Pantoprazole Sodium (Protonix) 40 mg PO ACBREAKFAST [facility] Last Admin: 09/22/19 08:06 Dose: 40 mg Documented by: Trazodone HCl (Trazodone) 50 mg PO BEDTIME PRN PRN Reason: Insomnia Last Admin: 09/21/19 23:09 Dose: 50 mg Documented by: Discontinued Medications Acetaminophen (Tylenol Extra Strength) 1,000 mg PO ONETIME ONE Stop: 09/20/19 20:19 Last Admin: 09/20/19 20:29 Dose: 1,000 mg Documented by: Citalopram Hydrobromide (Celexa) 20 mg PO ASDIRECTED PRN PRN Reason: depression Sodium Chloride (Normal Saline) 1,000 mls @ 500 mls/hr IV .BOLUS ONE Stop: 09/20/19 22:06 Last Admin: 09/20/19 20:37 Dose: 500 mls/hr Documented by: Potassium Chloride 20 meq/ (Premix) 100 mls @ 50 mls/hr IV ONETIME ONE Stop: 09/20/19 23:38 Last Admin: 09/21/19 01:26 Dose: 50 mls/hr Documented by: Potassium Chloride 20 meq/ (Premix) 100 mls @ 50 mls/hr IV ONETIME ONE Stop: 09/20/19 23:39 Last Admin: 09/21/19 04:35 Dose: 50 mls/hr Documented by: Lidocaine HCl (Xylocaine-Mpf 1%) 5 ml INJECT ONETIME ONE Stop: 09/20/19 21:40 Last Admin: 09/21/19 01:26 Dose: 5 ml Documented by: Potassium Chloride (Klor-Con M20) 40 meq PO ONETIME ONE Stop: 09/22/19 10:01 Last Admin: 09/22/19 10:02 Dose: 40 meq Documented by:
[2019-10-03 07:54] LABS: LYME IGG/IGM AB SEE SEPARATE REPORT
== END 2019-09-22 13:10 | disposition home or self-care (01) | DRG 869 ==
LOC: JP.ED 19:18 → JP.MS 22:14
PROVIDERS: ADMIT Internal Medicine; ATTEND Internal Medicine
PROC: 8E0ZXY6 Isolation (ICD-10-PCS; principal; 2019-09-20)
DX: A77.49 Other ehrlichiosis (principal); M32.9 Systemic lupus erythematosus, unspecified; D72.819 Decreased white blood cell count, unspecified; D69.6 Thrombocytopenia, unspecified; Z20.828 Contact with and (suspected) exposure to other viral communicable diseases; F41.9 Anxiety disorder, unspecified; F32.9 Major depressive disorder, single episode, unspecified; I10 Essential (primary) hypertension; E87.6 Hypokalemia; E05.90 Thyrotoxicosis, unspecified without thyrotoxic crisis or storm; Z90.49 Acquired absence of other specified parts of digestive tract; Z79.890 Hormone replacement therapy; Z88.1 Allergy status to other antibiotic agents; Z79.899 Other long term (current) drug therapy
CPT/HCPCS: 36415; 80048; 80053; 81001; 82550; 83605; 85025; 85027; 86140; 86618; 86666; 86753; 87040; 87804; 87804-59; 96360; 99285-25; A9270-GY; J2001; J3480; J3490; J7030; J7050; U0002

== ENCOUNTER 2025-01-12 06:17 | Day surgery (SDC) | payer OTHER ==
[2025-01-12] MEDS ORDERED: fentaNYL 50 MCG/ML SDV ONE (06:59)
[2025-01-12] MEDS ORDERED: Propofol 200 MG/20 ML SDV ONE (06:59)
[2025-01-12] MEDS: Lactated Ringers 1,000 ML IV SCH (07:12)
== END 2025-01-12 09:10 | disposition home or self-care (01) ==
LOC: JP.SDS 06:17
PROVIDERS: ATTEND Surgery
DX: Z12.11 Encounter for screening for malignant neoplasm of colon (principal); I10 Essential (primary) hypertension; Z80.0 Family history of malignant neoplasm of digestive organs; Z88.1 Allergy status to other antibiotic agents; Z79.899 Other long term (current) drug therapy; Z79.890 Hormone replacement therapy
CPT/HCPCS: 45378; J2704; J3010; J7120; 00812-QZ